=== PATIENT | male | born 1960 | race Caucasian/White ===

== ENCOUNTER 2022-05-20 00:57 | Emergency (ER) | payer OTHER ==
[~2022-05-20] VITALS: Ht 180.3 cm; Wt 72.7 kg
[2022-05-20 01:12] VITALS: BP 123/82
--- NOTE | 2022-05-20 02:25 | NUR ---
discharge intervention only.
== END 2022-05-20 02:26 | disposition home or self-care (01) ==
LOC: ER 00:58
DX: S20.212A Contusion of left front wall of thorax, initial encounter (principal); R07.89 Other chest pain; X58.XXXA Exposure to other specified factors, initial encounter; Y93.89 Activity, other specified; Y92.89 Other specified places as the place of occurrence of the external cause; Y99.8 Other external cause status
CPT/HCPCS: 71045; 99283